=== PATIENT | female | born 1980 | race Caucasian/White ===

== ENCOUNTER 2018-05-22 02:22 | Outpatient (CLI) | payer MEDICAID, SELFPAY ==
[2018-05-22 11:38] LABS: Glucose 105 mg/dL (70-100)
[2018-05-22 11:44] LABS: Hemoglobin A1C 6.1 % (4.5-6.2)
== END 2018-05-22 02:42 ==
PROVIDERS: PCP Family Medicine; Visit Provider Family Medicine
DX: R73.09 Other abnormal glucose (principal); E66.9 Obesity, unspecified
CPT/HCPCS: 36415; 82947; 83036

== ENCOUNTER 2019-03-19 07:32 | Emergency (ER) | payer MEDICAID, SELFPAY ==
[2019-03-19 07:39] VITALS: BP 148/95; PULSE 86; RESP 18; TEMP 36.6; O2SAT 98
--- NOTE | 2019-03-19 07:49 | DI.RAD_ITS ---
EXAM: XR FINGER LT MIDDLE INDICATION: pain s/p closed in car door. COMPARISON: No exams were available for comparison TECHNIQUE: 2D digital imaging was performed. FINDINGS: No fracture or dislocation is seen. IMPRESSION: Negative left middle finger.
--- NOTE | 2019-03-19 07:51 | W.ED.GENAD ---
Discharge Plan Disposition Patient Disposition: HOME Condition: Stable Discharge Details Chief Complaint: Orthopedic Clinical Impression: Subungual hematoma of left middle finger Primary Care Provider: Alice Lawrence ED Provider: Higinio Brownlee Home Meds and New Rx's Prescriptions: Continued xlckcdluenwy-jbai-leojv acid 18-400 mg-mcg tablet 1 tab PO DAILY RF: 0 Calcium Magnesium 500 mg calcium -250 mg tablet 1 tab PO DAILY RF: 0 potassium 99 mg tablet 99 mg PO DAILY RF: 0 One-Per-Day [place]-3 1 EACH capsule,delayed release(DR/EC) 1 ea PO DAILY RF: 0 Mirena 1 EACH intrauterine device 1 ea Intrauterine ONCE Qty: 1 RF: 0 Discharge Instructions Instructions: Hematoma (ED) Additional Instructions: if redness spreads down the finger or you have yellow/white discharge return to the emergency department if still in pain in a week follow up with your primary care provider Medical Decision Making 38 yo female comes in with left middle finger pain. She states it was accidentally closed in a car door around 5pm last night. She performed a self trephination of the nail last night and woke up with conitnued pain and swelling so came here. DEnies pain elsehwere. She has a left middle finger subungal hematoma of the left middle finger involving the entire nail. Does have intact rom and sensation with pain to palpation. Will likely need to be trephinated again and will xray to eval for underlying fx xray neagtive on my read. I cleaned the nail with alcohol swab and using electrocautery trephinated the nail with return of blood and she tolerated well. Will d/c home and return precautions for infection given Differential Diagnosis Differential Diagnosis: fracture, dislocation, subungal hematoma HPI General Mode of arrival: ambulatory. Date/Time Provider Initiated Documentation: 03/19/19 07:46. Limitations to Documentation: no limitations. Information obtained by: patient. History of Present Illness 38 year old F presents to the emergency department with the chief complaint of left middle finger, described as moderate, and it has been constant. No relieving factors improve symptom(s), No exacerbating factors reported . Patient did receive the following treatments prior to arrival, none Related Data Home Medications Medication Instructions Recorded Confirmed One-Per-Day [place]-3 1 ea PO DAILY 12/11/12 03/19/19 Mirena 1 ea INTRAUTERINE ONCE #1 implant 05/26/16 03/19/19 calcium carb-Ca gluc 500 mg 1 tab PO DAILY tab 09/20/18 03/19/19 calcium-magnesium ox-Mg gluc 250 mg tablet multivitamin-ferrous 1 tab PO DAILY 09/20/18 03/19/19 fumarate-folic acid 18 mg-400 mcg tablet potassium 99 mg tablet 99 mg PO DAILY 09/20/18 03/19/19 Allergies Allergy/AdvReac Type Severity Reaction Status Date / Time adhesive tape Allergy Unknown blisters Unverified 03/19/19 07:41 meloxicam AdvReac Intermediate TACHYCARDIA, Unverified 03/19/19 07:47 ELEVATED BP, MIGRAINE ibuprofen AdvReac Unknown HEART RACES Unverified 03/19/19 07:41 General Stated Complaint: Orthopedic MIRELLA: 4 Review of Systems All systems reviewed & are unremarkable except as noted in HPI and below Constitutional Constitutional: Denies chills, Denies fever(s) and Denies weakness Cardiovascular Cardiovascular: Denies chest pain and Denies dyspnea Respiratory Respiratory: Denies cough and Denies dyspnea Gastrointestinal Gastrointestinal: Denies vomiting Musculoskeletal Musculoskeletal: Denies joint swelling Neurologic Neurologic: Denies weakness [facility] Medical History (Updated 01/21/19 @ 14:24 by Elisabet Castillo CNM) Abnormal uterine bleeding 09/2015 After . EMBx secretory endometrium. Will suggest Mirena IUD. Morbid obesity with body mass index of 40.0-44.9 in adult Shingles outbreak 11/18/15 Shingles outbreak 4w PP. encouraged. Surgical History (Updated 07/11/16 @ 17:48 by Usha Guerin) Colonoscopy - IV Sedation (06/24/16) Family History Brother Essential hypertension Personal history of malignant neoplasm Social History (Updated 02/01/18 @ 12:36 by Armaan Mccann) Smoking/Tobacco Use Status: Never Alcohol Intake: never Drug use: Never Substance use type: does not use Household members: spouse and children Frequency: daily Seatbelt use: always Do you feel safe in your relationship?: Yes Female Reproductive History Menstrual Duration of menses: other (using mirena it has improved irregular bleeding since prior to insertion , yet now lasting upwards of 14 days.) control method: progestin IUCD (mirena) Exam Const General: no acute distress Orientation: alert HENMT Head: normal to inspection Ears: external ears normal General nose exam: external nose normal Mouth: moist mucous membranes Eyes General: appearance normal, both eyes and all related structures Neck Neck: normal visual inspection Resp Effort & Inspection: normal respiratory effort and able to speak in complete sentences Cardio Rate: regular rate Skin General skin exam: no rashes or lesions noted Neuro General: alert and oriented x3 Extrem General: normal capillary refill Psych Mental Status: mental status grossly normal Course Vital Signs Vital signs: Vital Signs Temperature 36.6 C 03/19/19 07:39 Pulse 86 03/19/19 07:39 Respiratory Rate 18 03/19/19 07:39 Blood Pressure 148/95 H 03/19/19 07:39 Pulse Oximetry 98 03/19/19 07:39 Temperature 36.6 C 03/19/19 07:39 Pulse 86 03/19/19 07:39 Respiratory Rate 18 03/19/19 07:39 Respiratory Effort 03/19/19 07:43 Blood Pressure 148/95 H 03/19/19 07:39 Blood Pressure Position Sitting 03/19/19 07:39 Pulse Oximetry 98 03/19/19 07:39 Oxygen Delivery Method Room Air 03/19/19 07:39 Oxygen Flow Rate 0 03/19/19 07:39 Pain Level 5 03/19/19 07:43
== END 2019-03-19 08:26 | disposition home or self-care (01) ==
PROVIDERS: Emergency Provider Emergency Medicine; PCP Family Medicine
DX: S67.193A Crushing injury of left middle finger, initial encounter (principal); S60.132A Contusion of left middle finger with damage to nail, initial encounter; W23.0XXA Caught, crushed, jammed, or pinched between moving objects, initial encounter
CPT/HCPCS: 99283; 73140; 99282

== ENCOUNTER 2019-05-03 07:45 | Outpatient (CLI) | payer MEDICAID, SELFPAY ==
[2019-05-03 08:06] LABS: HCT 39.5 % (36.0-46.0); HGB 13.3 g/dL (12.0-15.5); Mean Corp. HGB Concentration 33.7 g/dL (32.0-36.0); Mean Corpuscular Hemoglobin 30.4 pg (27.0-33.0); Mean Corpuscular Volume 90.4 fL (80-95); Mean Platelet Volume 9.5 fL (8.0-11.0); Platelet Count 238 x1000/uL (130-400); RBC 4.37 m/cumm (4.00-5.20); RBC Distribution Width 13.6 % (11.7-14.6); White Blood Cell Count 7.68 k/cumm (4.4-10.8)
[2019-05-03 08:17] LABS: Hemoglobin A1C 5.7 % (3.8-5.6)
[2019-05-03 08:48] LABS: ALT 31 U/L (14-59); AST 22 U/L (15-37); Albumin 3.7 g/dL (3.4-5.0); Alkaline Phosphatase 45 U/L (46-116); Anion Gap 9.3 mmol/L (3-11); BUN 25 mg/dL (7-18); Bilirubin, Total 0.6 mg/dL (0.2-1.0); CO2 29.7 mmol/L (21.0-32.0); CREATININE 0.82 mg/dL (0.55-1.02); Calcium 8.9 mg/dL (8.5-10.1); Chloride 101 mmol/L (98-107); Cholesterol 182 mg/dL (<200); Glucose 84 mg/dL (74-106); HDL Cholesterol 74 mg/dL (40-60); Potassium 4.3 mmol/L (3.5-5.1); Sodium 140 mmol/L (136-145); Triglyceride < 25 mg/dL (<150)
[2019-05-03 08:59] LABS: LDL CHOLESTEROL 96 mg/dL (<100)
== END 2019-05-03 08:05 ==
PROVIDERS: PCP Family Medicine; Visit Provider Family Medicine
DX: R73.03 Prediabetes (principal); N92.0 Excessive and frequent menstruation with regular cycle; E66.9 Obesity, unspecified; Z13.220 Encounter for screening for lipoid disorders
CPT/HCPCS: 36415; 80053; 80061; 83721; 85027; 83036

== ENCOUNTER 2021-02-08 11:05 | Outpatient (REF) | payer MEDICAID, SELFPAY ==
--- NOTE | 2021-02-08 10:20 | PAPFT_PTH ---
PATIENT: Jeniffer Gan LOC: [facility] U#:[id number] AGE/SX: 40/F ROOM: RE02/08/[address]: Shayy Lainez MD : 1980 BED: DIS: 02/08/2021 SPEC #: [id number] RECD: 02/08/21 13:02 STATUS: CARMITA MEREDITH #: [id number] EMMANUEL: 02/08/21 10:[address]: Shayy Lainez DEPT: [facility] Cytology RECD BY: Kim Fletcher ENTERED: 02/08/21 13:03 SP TYPE: PAPFT OTHR DR: Aldo Sánchez Tissues: 1 - CX/ENDOCX FOR PAP SMEARS Procedures: PAP THIN PREP/UVM Screening HPV DNA PROBE Comments: [id number]
== END 2021-02-08 11:06 | disposition home or self-care (01) ==
LOC: LBN 11:05
PROVIDERS: PCP Family Medicine; Visit Provider Obstetrics & Gynecology
DX: Z12.4 Encounter for screening for malignant neoplasm of cervix (principal); Z11.51 Encounter for screening for human papillomavirus (HPV)
CPT/HCPCS: 88142; 87624

== ENCOUNTER 2021-02-10 09:40 | Outpatient (REF) | payer MEDICAID, SELFPAY ==
--- NOTE | 2021-02-10 08:35 | ENDOMET_PTH ---
PATIENT: Jeniffer Gan LOC: [facility] U#:[id number] AGE/SX: 40/F ROOM: RE02/10/[address]: Shayy Lainez MD : 1980 BED: DIS: 02/10/2021 SPEC #: [id number] RECD: 02/10/21 12:48 STATUS: CARMITA REQ #: [id number] EMMANUEL: 02/10/21 08:[address]: Shayy Lainez DEPT: Surgical Specimen RECD BY: Kim Fletcher ENTERED: 02/10/21 12:49 SP TYPE: Endomet OTHR DR: Aldo Sánchez Tissues: 1 - ENDOMETRIUM BX/TONEETTE Procedures: GROSS AND MICRO LEVEL 4 Comments: [id number]
== END 2021-02-10 09:41 | disposition home or self-care (01) ==
LOC: LBN 09:40
PROVIDERS: PCP Family Medicine; Visit Provider Obstetrics & Gynecology
DX: N93.9 Abnormal uterine and vaginal bleeding, unspecified (principal)
CPT/HCPCS: 88305

== ENCOUNTER 2021-02-12 00:27 | Outpatient (CLI) | payer MEDICAID, SELFPAY ==
--- NOTE | 2021-02-12 07:30 | DI.MAMMO_ITS ---
Exam(s) MAMMO SCREENING EXAM: MAMMO SCREENING CLINICAL HISTORY: screening,Z12.39 TECHNIQUE: Mammograms were interpreted according to the usual protocol including computer analysis w [employer] CAD system, tomosynthesis and C-view imaging. COMPARISON: No exams were available for comparison. Baseline examination. FINDINGS: The breasts are composed of scattered fibroglandular densities, Breast Density category B. No suspicious masses or suspicious microcalcifications are seen. No skin thickening or abnormal axillary lymph nodes are seen. There has been no significant change from prior exams. IMPRESSION: BI-RADS Category 1, Negative mammogram Yearly screening mammography is recommended. Breast Density - Category B, scattered fibroglandular densities. A negative radiographic report should not delay biopsy if a dominant or clinically suspicious mass is present. Up to ten percent of cancers are not identified on mammography. A negative report may reinforce clinical impression. Adenosis and dense breasts may obscure an underlying neoplasm. False positive reports average 6 to 10%. Patient will receive a letter notifying them of these results.
== END 2021-02-12 00:47 ==
PROVIDERS: PCP Family Medicine; Visit Provider Family Medicine
DX: Z12.31 Encounter for screening mammogram for malignant neoplasm of breast (principal)
CPT/HCPCS: 77063; 77067

== ENCOUNTER 2021-10-01 06:10 | Day surgery (SDC) | payer MEDICAID, SELFPAY ==
--- NOTE | 2021-09-30 09:52 | W.COLOREPORT ---
Colonoscopy Report Date of procedure: 10/01/21 Pre-op diagnosis general: +family Hx/Adenomatous polyps Post-op diagnosis procedure note: other (normal scope) Surgeon: Cayla Sanchez Anesthesia Type: General:No Airway Estimated blood loss (mL): 0 Pathology: none sent Complications: None Disposition: same day Prep: Miralax/Dulcolax Retraction Time: 9 Procedure Description: After informed consent was obtained the patient was taken to the procedure room and placed in a left decubitous position. Monitors were applied and a time out was done. The patients name, date of , procedure, allergies to medications and metal in their body was reviewed. The patient was then sedated. Once sedated and comfortable a rectal exam was done. External exam was normal. Internal exam revealed a normal sphincter tone and no palpable masses. The scope was then introduced and retrofelexed. No internal hemorrhoids were identified. The scope was then advanced to the cecum difficulty. The TI and appendiceal orifice were identified. The prep was the BPS 2 in all segments for a total of 6 9 The scope was then slowly retracted over 9 minutes back into the rectum. There are no polyps or AVMs visualized today. She has minor diverticula of the sigmoid colon. There is no signs of active bleeding or infection. The scope was removed and the patient was woken up and taken back to Same day surgery in stable condition. The patient tolerated the procedure well and there were no immediate complications. Follow up: The patient should follow up in 5 years unless they develop changes in bowel habits or other new gastrointestinal complaints.
--- NOTE | 2021-09-30 10:01 | W.PM.DSUDISC ---
Discharge Plan Disposition Patient Disposition: HOME Condition: Good Discharge Details Reason For Visit: colon scope Attending Provider: Cayla Sanchez Primary Care Provider: Madeleine Dave Home Meds and New Rx's Prescriptions: Continued jjnynqtwqfvb-uyjk-ipyuy acid 18-400 mg-mcg tablet 1 tab PO DAILY Calcium Magnesium 500 mg calcium -250 mg tablet 1 tab PO DAILY potassium 99 mg tablet 99 mg PO DAILY One-Per-Day [place]-3 1 EACH capsule,delayed release(DR/EC) 1 ea PO DAILY Label Comments: Mirena 1 EACH intrauterine device 1 ea Intrauterine ONCE Qty: 1 Discontinued bisacodyl [Dulcolax (bisacodyl)] 5 mg tablet,delayed release (DR/EC) 5 mg PO ONCE Qty: 4 0RF Rx Instructions: Take according to provider's instructions for colonoscopy prep. polyethylene glycol 3350 17 gram/dose powder 17 g PO ONCE Qty: 238 0RF Rx Instructions: To be taken as directed by prescriber's office for colonoscopy prep. Discharge Instructions Additional Instructions: DSU Colonoscopy Post-Op Instructions Instructions for Everyone who is given Anesthesia: For your safety, please do the following for the next twenty-four (24) hours: *Do Not operate a motor vehicle (car, truck, motorcycle, etc.) *Do Not drink alcoholic beverages or use any recreational drugs for the first 24 hours or while taking pain medications. The medications in your body may have a reaction that can be dangerous. *Do Not make any important decisions or sign any important papers. Findings: Follow up: 1. No lifting over 20 pounds or strenuous activity for the first 24 hours after your procedure. After 24 hours there are no restrictions on your activity but you may feel fatigued for a few days. 2. After you arrive home you may have a light meal and return to your normal diet as you can tolerate it without feeling sick to your stomach. 3. You may have a bloated, gaseous feeling in your belly (abdomen) after a colonoscopy. Passing gas and belching will help. Walking or lying down on your left side with your knees flexed may relieve the discomfort. Call the office at [phone] (Office) or [phone] (Hospital) right away if you notice any of the following: a.Vomiting of blood or ?coffee ground stools?. b.Rectal bleeding 1Tbsp, blood clots or continuous bleeding. c.Severe belly (abdominal) pain. d.A hard distended belly (abdomen) and an inability to pass gas. 4. Please don?t expect to have a normal BM (bowel movement) for 2-3 days after your procedure. 5. If there are questions regarding the findings of your procedure, please contact your doctor 6. If you are unable to contact your doctor with a problem, contact the hospital at [phone]. 7. Continue all your regular medications unless directed otherwise. I understand the above instructions and have no questions. Signature of Patient or Adult Escort Name of Responsible Adult Escort Signature of Nurse Date/Time Activity:: see above Diet:: see above Discharge Orders Discharge Orders: Discharge Order (Routine); Ordered 09/30/21 Ordered By: Cayla Sanchez DS: Diagnosis Discharge Diagnosis (1) Diverticula of colon: Status: Acute
[2021-10-01 06:15] VITALS: BP 140/96; PULSE 82; RESP 18; TEMP 36.6; O2SAT 99
[2021-10-01] MEDS: Lactated Ringers 1,000 ML 80 ML IV (06:37)
--- NOTE | 2021-10-01 07:13 | ANES.PREOP_ITS ---
General Info Date of Service Date Performed: 10/29/21 Height: 5 ft 11 in Weight: 130 kg Body Mass Index (BMI): 39.9 Surgical Procedure: Operation Date: 10/01/21 07:35 Proposed Procedure Side Surgeon p Colonoscopy Cayla Sanchez, DO Actual Procedure Side Surgeon p Colonoscopy Cayla Sanchez, DO Meds Allergies and Home Medications Allergies Allergy/AdvReac Type Severity Reaction Status Date / Time adhesive tape Allergy Unknown blisters Verified 10/01/21 06:22 codeine AdvReac Intermediate Sleepiness, Verified 10/01/21 06:22 reduced cognition meloxicam AdvReac Intermediate TACHYCARDIA, Verified 10/01/21 06:22 ELEVATED BP, MIGRAINE caffeine AdvReac Mild Tachycardia Verified 10/01/21 06:22 ibuprofen AdvReac Unknown HEART RACES Verified 10/01/21 06:22 Home Medication Medication Instructions Recorded omega-3 fatty acids-fish oil 684 1 ea PO DAILY 12/11/12 mg-1,200 mg capsule,delayed release (One-Per-Day [place]-3) levonorgestrel 20 mcg/24 hours (7 1 ea intrauterine ONCE #1 implant 05/26/16 yrs) 52 mg intrauterine device (Mirena) calcium carb-Ca gluc 500 mg 1 tab PO DAILY 09/20/18 calcium-magnesium ox-Mg gluc 250 mg tablet (Calcium Magnesium) multivitamin-ferrous 1 tab PO DAILY 09/20/18 fumarate-folic acid 18 mg-400 mcg tablet potassium 99 mg tablet 99 mg PO DAILY 09/20/18 Current Visit Medications: Current Medications Generic Name Dose Route Start Last Admin Trade Name Freq PRN Reason Stop Dose Admin Hyoscyamine Sulfate 0.125 mg 09/30/21 09:52 Hyoscyamine 0.125 Mg Sl/Oral/Chew SL DIRECTED PRN Ringer's Solution 1,000 mls @ 80 mls/hr 10/01/21 06:00 10/01/21 06:37 IV 10/28/21 23:59 80 mls/hr INFUSION JORDON Administration IV Miscellaneous Supplies 1 each 10/01/21 06:00 Iv Access IV 10/28/21 23:59 DIRECTED JORDON Ondansetron HCl 4 mg 09/30/21 09:52 Ondansetron 4 Mg/2 Ml Vial IVP Q4H PRN PRN Nausea / Vomiting Sodium Chloride 0 ml 10/01/21 06:00 Normal Saline Flush 10 Ml Syr IV 10/28/21 23:59 PRN PRN Sodium Chloride 0 ml 10/01/21 06:00 Normal Saline 10 Ml Vial IJ 10/28/21 23:59 DIRECTED PRN Sterile Water 0 ml 10/01/21 06:00 Water,Injection,Sterile 10 Ml Vial IJ 10/28/21 23:59 DIRECTED PRN PFSH Active Problems Active Problems: Problem Status Onset Code Arthritis of right knee 05/22/17 M17.11 Obesity (BMI 30-39.9) 05/31/17 E66.9 Tinnitus 11/20/14 H93.19 Tubular adenoma 06/24/16 D36.9 Family history of familial polyposis Z83.71 ANDREY (stress urinary incontinence, female) N39.3 Medical History Medical History Abnormal uterine bleeding (05/18/16) Nl CBC and TSH. EMBx 05/18/16 Secretory endometrium. Infected finger joint Laceration of left index finger Shingles outbreak 11/18/15 Shingles outbreak 4w PP. encouraged. Medical History Comments:: Pt. states when she goes deeply under anesthesia she wakes up with severe violent vomiting. States last colonoscopy they kept her semi-awake and she was okay. Surgical History Surgical History Colonoscopy - IV Sedation (06/24/16) H/O ovarian cystectomy Laparoscopic - Dermoid History of ankle surgery 2 pins in ankle Status post ovarian cystectomy Tobacco Smoking/Tobacco Use Status: Never Passive smoking exposure: No Second hand exposure: Yes Alcohol Alcohol Intake: never Substance Use Substance use: Never Substance use type: does not use Prental History History 9 Para 6 Hx # Term Pregnancies 6 Multiple births Hx # Pregnancies Ectopic pregnancies AB induced Hx Number of Living Children 6 AB spontaneous 3 Past Pregnancies Del. Date GA/Weeks # Outcome Route Wgt Sex Labor Lgth Anesthes ia Location Prov Complic 01/11/03 40 vaginal 3713.788 g Male [facility] , [facility] 12/17/04 40 vaginal 4139.03 g Male [facility], [facility] 11/28/07 40 vaginal 3685.438 g Female [facility] 06/09/10 42 vaginal 4394.176 g Male [facility] 05/19/12 40 vaginal 4394.176 g Female [facility] 10/21/15 38 vaginal 3742.137 g Female [facility] Vital Signs and Lab Results Vital Signs Most Recent Vital Signs in EMR: Most Recent Vital Signs Temp Pulse Resp BP Pulse Ox 36.6 C 82 18 140/96 H 99 10/01/21 06:15 10/01/21 06:15 10/01/21 06:15 10/01/21 06:15 10/01/21 06:15 Point of Care Results Point of Care Results: POC- Test(urine) Negative 10/01/21 06:29 Lab Results Blood Type / Crossmatch: No Data to Display Complete Blood Count: No Data to Display Complete Metabolic Panel: No Data to Display Liver Function Panel: No Data to Display Coagulation Panel: No Data to Display Cardiac Panel: No Data to Display Arterial Blood Gas: No Data to Display Venous Blood Gas: No Data to Display Pancreas Panel: No Data to Display Thyroid Panel: No Data to Display Infectious Disease: No Data to Display Blood Cultures: No Data to Display Toxicology Panel: No Data to Display Panel: No Data to Display Anesthesia Assessment and Plan Anesthesia History Personal History: PONV Family History: No Family History of Anesthesia Complications Exercise Tolerance Exercise Tolerance: Metabolic Equivalents>4 Pertinent Negatives Pertinent Negatives: No Symptoms of GERD Cardiac & Pulmonary Exam Cardiac Exam: Normal S1/S2 Heart Sounds Pulmonary Exam: Clear Bilateral Breath Sounds Implantable Cardiac Device Does patient have a Pacemaker or an ICD?: No Airway Exam Known Difficult Airway: No Mallampati Class: 1 Mouth Opening: Normal (> 3cm) Thyromental Distance: Greater than 3 cm Neck Range of Motion: Full ROM Neck Circumference: Normal Teeth Condition: Normal Dentition ASA Classification ASA Score: ASA 2 Emergency Case?: No NPO Status NPO Status: NPO Clears >2 hours, Solids >8 hours Status Status: Negative HCG Anesthesia Plan Resuscitation Status: Full Code Anesthesia Technique: General Anesthesia Airway Planned: Natural Airway Monitors Used: Standard Monitors
[2021-10-01 07:26] VITALS: BMI 39.9
[2021-10-01 08:10] VITALS: BP 127/81; PULSE 77; RESP 18; TEMP 36.4; O2SAT 99
--- NOTE | 2021-10-01 08:23 | W.ANESPOSTOP ---
Postoperative Evaluation Date, Time and Location Date Performed: 10/01/21 Time Performed: 07:24 Patient Location: Day Surgery Unit Vital Signs Most Recent Imported Vital Signs: Most Recent Vital Signs Temp Pulse Resp BP Pulse Ox 36.4 C L 77 18 127/81 99 10/01/21 08:10 10/01/21 08:10 10/01/21 08:10 10/01/21 08:10 10/01/21 08:10 Pain Score Most Recent Pain Score: Most Recent Pain Score Pain Level 0 10/01/21 08:10 Assessment Mental Status: Awake (Alert & Oriented to Patient Baseline) Airway and Respiratory Function: Patent airway with normal (patient baseline) respiratory exam Cardiovascular Function: Hemodynamically Stable Hydration Status: Adequately Hydrated Nausea & Vomiting: No Nausea or Vomiting Pain: Pt. Denies Any Pain Peripheral Nerve Block: Patient did not receive a nerve block
[2021-10-01 08:35] VITALS: BP 142/97; PULSE 66; RESP 18; TEMP 36.3; O2SAT 100
== END 2021-10-01 08:55 | disposition home or self-care (01) ==
PROVIDERS: Visit Provider Surgery
PROC: 0DJD8ZZ Inspection of Lower Intestinal Tract, Via Natural or Artificial Opening Endoscopic (ICD-10-PCS; CPT 45378; principal; 2021-10-01 07:30)
DX: Z12.11 Encounter for screening for malignant neoplasm of colon (principal); Z80.0 Family history of malignant neoplasm of digestive organs; Z86.010 Personal history of colon polyps
CPT/HCPCS: 45378; 81025

== ENCOUNTER 2022-03-08 03:19 | Outpatient (CLI) | payer MEDICAID, SELFPAY ==
[2022-03-08 07:29] LABS: HCT 42.4 % (36.0-46.0); HGB 13.7 g/dL (11.2-15.7); MCH 28.7 pg (27.0-33.0); MCHC 32.3 % (32.0-36.0); MCV 89 fL (80-95); MPV 9.5 fL (8.0-11.0); Platelet Count 254 10^3/uL (130-400); RBC 4.77 10^6/uL (3.93-5.22); RDW 12.6 % (11.7-14.6); RDW-SD 41.3 fL
[2022-03-08 08:17] LABS: ALT 15 U/L (14-59); AST 13 U/L (15-37); Albumin 3.6 g/dL (3.4-5.0); Alkaline Phosphatase 67 U/L (46-116); BUN 22 mg/dL (7-18); Bilirubin, Total 0.5 mg/dL (0.2-1.0); CREATININE 0.7 mg/dL (0.55-1.02); Calcium 9.1 mg/dL (8.5-10.1); Calculated LDL 94 mg/dL (<100); Chloride 101 mmol/L (98-107); Cholesterol 171 mg/dL (<200); Estimated GFR 110.67 (mL/min/1.73m2); Glucose 101 mg/dL (74-106); HDL Cholesterol 71 mg/dL (40-60); Potassium 4.1 mmol/L (3.5-5.1); Sodium 138 mmol/L (136-145); TSH (W/Ref FT4) 1.12 uIU/mL (0.36-3.74); Total Protein 7.8 g/dL (6.4-8.2); Triglyceride 32 mg/dL (<150)
== END 2022-03-08 03:20 | disposition home or self-care (01) ==
LOC: LBO 03:20
PROVIDERS: PCP Nurse Practitioner Family; Visit Provider Nurse Practitioner Family
DX: E66.01 Morbid (severe) obesity due to excess calories (principal); N93.8 Other specified abnormal uterine and vaginal bleeding
CPT/HCPCS: 36415; 80053; 80061; 85027; 84443

== ENCOUNTER → 2022-03-23 01:25 | Outpatient (CLI) | payer MEDICAID, SELFPAY ==
--- NOTE | 2022-03-23 07:47 | DI.MAMMO_ITS ---
Exam(s) MAMMO SCREENING EXAM: MAMMO SCREENING CLINICAL HISTORY: screening,Z12.39 TECHNIQUE: Bilateral full field digital CC and MLO mammographic images were obtained with 3D tomosyn thesis and utilizing computer aided detection (CAD). COMPARISON: Available for comparison. FINDINGS: Masses/Architectural Distortion: None seen. Microcalcifications: No suspicious pleomorphic-type are seen. Skin Thickening/Nipple Retraction: None. IMPRESSION: 1. No significant interval change with no specific features of malignancy noted. 2. Unless there is more urgent need, screening mammography is recommended, as per [place] [employer] guidelines. BI-RADS Category 1 - Negative Breast Density - Category B - Scattered areas of fibroglandular density Breast density category C or D implies that the patient has dense breast tissue. Dense breast tissue is very common and is not abnormal but dense breast tissue can make it harder to find cancer on a ma mmogram. Also, dense breast tissue may increase their breast cancer risk. This information about the result of the mammogram report was provided to the patient to raise their awareness. Use this report when you speak with the patient about their risks for breast cancer, which includes their family hist ory. At that time, you may recommend for more screening tests (Ultrasound or MRI) as they might be us eful based on their risk. A negative radiographic report should not delay biopsy if a dominant or clinically suspicious mass is present. Up to ten percent of cancers are not identified on mammography. A negative report may reinforce clinical impression. Adenosis and dense breasts may obscure an underlying neoplasm. False positive reports average 6 to 10%. Patient will receive a letter notifying them of these results.
== END ==
PROVIDERS: PCP Nurse Practitioner Family; Visit Provider Nurse Practitioner Family
DX: Z12.31 Encounter for screening mammogram for malignant neoplasm of breast (principal)
CPT/HCPCS: 77063; 77067

== ENCOUNTER → 2022-03-28 01:44 | Outpatient (CLI) | payer MEDICAID, SELFPAY ==
--- NOTE | 2022-03-28 07:00 | DI.US_ITS ---
Exam(s) US PELVIS TRANSVAGINAL EXAM: US PELVIS TRANSVAGINAL CLINICAL HISTORY: abnl irregular bleeding,n93.9 TECHNIQUE: Transabdominal and transvaginal imaging was performed using standard protocol. COMPARISON: No exams were available for comparison FINDINGS: KIDNEYS: Kidneys are symmetric in size. No evidence of renal calculi. No evidence of hydronephrosis. No renal mass or cyst identified. UTERUS: Retroverted. 8.7 x 5.3 x 6.5 cm Endometrium: 5 mm. IUD noted appropriately positioned within the endometrial cavity. Myometrium: Unremarkable. Cervix: Unremarkable. OVARIES: Right: Cyst or mass: None. Left: Cyst or mass: None. DOPPLER: Color: Symmetric and uniform flow to both ovaries. No hyperemia. CUL-DE-SAC: Free fluid: None. IMPRESSION: 1. Normal-appearing uterus with endometrial stripe within normal limits. IUD in place. 2. Unremarkable bilateral ovaries. DATA REPOSITORY:
== END ==
PROVIDERS: PCP Nurse Practitioner Family; Visit Provider Obstetrics & Gynecology
DX: N93.8 Other specified abnormal uterine and vaginal bleeding (principal); Z97.5 Presence of (intrauterine) contraceptive device
CPT/HCPCS: 76830; 76856

== ENCOUNTER → 2023-03-29 01:35 | Outpatient (CLI) | payer MEDICAID, SELFPAY ==
--- NOTE | 2023-03-29 07:45 | DI.MAMMO_ITS ---
Exam(s) MAMMO SCREENING EXAM: MAMMO SCREENING CLINICAL HISTORY: screening,z12.39 TECHNIQUE: Bilateral full field digital CC and MLO mammographic images were obtained with 3D tomosyn thesis and utilizing computer aided detection (CAD). COMPARISON: Available for comparison. FINDINGS: Masses/Architectural Distortion: There is an area of breast asymmetry more prominent in the outer rig ht breast on the craniocaudad view 12 cm from the nipple. Microcalcifications: No suspicious pleomorphic-type are seen. Skin Thickening/Nipple Retraction: None. IMPRESSION: 1. New prominent area of breast asymmetry in the outer right breast on the craniocaudad view. 2. This area should be further evaluated with a spot compression view. Limited right breast ultrasou nd may be indicated at that time. BI-RADS Category 0 - Assessment Incomplete: Need additional imaging evaluation Breast Density - Category B - Scattered areas of fibroglandular density Breast density category C or D implies that the patient has dense breast tissue. Dense breast tissue is very common and is not abnormal but dense breast tissue can make it harder to find cancer on a ma mmogram. Also, dense breast tissue may increase their breast cancer risk. This information about the result of the mammogram report was provided to the patient to raise their awareness. Use this report when you speak with the patient about their risks for breast cancer, which includes their family hist ory. At that time, you may recommend for more screening tests (Ultrasound or MRI) as they might be us eful based on their risk. A negative radiographic report should not delay biopsy if a dominant or clinically suspicious mass is present. Up to ten percent of cancers are not identified on mammography. A negative report may reinforce clinical impression. Adenosis and dense breasts may obscure an underlying neoplasm. False positive reports average 6 to 10%. Patient will receive a letter notifying them of these results.
== END ==
PROVIDERS: PCP Nurse Practitioner Family; Visit Provider Nurse Practitioner Family
DX: Z12.31 Encounter for screening mammogram for malignant neoplasm of breast (principal)
CPT/HCPCS: 77063; 77067

== ENCOUNTER → 2023-04-07 00:33 | Outpatient (CLI) | payer MEDICAID, SELFPAY ==
--- NOTE | 2023-04-07 | DI.US_ITS ---
Exam(s) MG MAMMO SCREEN CALL BACK UNI US BREAST RT COMPLETE EXAM: MG MAMMO SCREEN CALL BACK UNI-RIGHT AND COMPLETE RIGHT BREAST ULTRASOUND CLINICAL HISTORY: F/U ABNL MAMMO, NEW PROMINENT AREA BREAST ASYMMETRY OUTER RT BREAST. TECHNIQUE: Unilateral spot RIGHT BREAST mammographic images obtained with 3D tomosynthesisand utiliz ing computer aided detection (CAD). . Complete RIGHT BREAST ultrasound was performed including all 4 quadrants, the retroareolar region, an d the ipsilateral axilla. COMPARISON: Prior mammograms were reviewed. This additional imaging was performed due to findings described on the recent screening mammogram of 11/26/2022. FINDINGS: DIAGNOSTIC MAMMOGRAM: Additional mammographic views performed todayreveals small benign-appearing lymph node laterally in t he breast. The asymmetric density for which is patient was recalled for as equivocal appearance on a dditional spot compression 3D mammographic view. We proceeded with ultrasound... COMPLETE RIGHT BREAST ULTRASOUND: Ultrasound performed today reveals a benign-appearing 6 millimeter lymph node at the 7 o'clock positi on located 5 cm from the nipple, this corresponding to benign lymph nodes seen in the breast on the m ammogram. There are no other significant focal findings in all 4 quadrants of the right breast. No finding to correspond to the finding described on the recent screening mammogram. Scanning of the ipsilateral axilla reveals no significant adenopathy. IMPRESSION: 1. Benign findings in the right breast as described above. Appropriate follow-up as discussed by myself with the patient today is repeat right breast mammogram in 6 months, with earlier imaging if a self detected breast change is noted.. The patient was informed of these findings and recommendations by myself prior to leaving the departm ent today. BI-RADS Category 3 - 6 month - Probably Benign Finding: Recommend follow-up mammography in 6 months Breast Density - Category B - Scattered areas of fibroglandular density Breast density Category C or D implies that the patient has dense breast tissue. Dense breast tissue can make it harder to find cancer on a mammogram. Dense breast tissue is also associated with an incr eased risk of breast cancer. This information about the result of the mammogram report was provided to the patient to raise their awareness. Use this report when you speak with the patient about their risks for breast cancer, which includes their family history. At that time, you may recommend additional screening tests (Ultrasoun d or MRI) as these tests may add significant information. A negative radiographic report should not delay biopsy if a dominant or clinically suspicious mass is present. Up to ten percent of cancers are not identified on mammography. A negative report may reinforce clinical impression. Adenosis and dense breasts may obscure an underlying neoplasm. False positive reports average 6 to 10%. Patient will receive a letter notifying them of these results.
== END ==
PROVIDERS: PCP Nurse Practitioner Family; Visit Provider Nurse Practitioner Family
DX: Z12.31 Encounter for screening mammogram for malignant neoplasm of breast (principal); D36.0 Benign neoplasm of lymph nodes; R92.8 Other abnormal and inconclusive findings on diagnostic imaging of breast
CPT/HCPCS: 76642; 77063; 77067

== ENCOUNTER → 2023-10-11 00:34 | Outpatient (CLI) | payer MEDICAID, SELFPAY ==
--- NOTE | 2023-10-11 07:45 | DI.US_ITS ---
Exam(s) MG MAMMO DIAGNOSTIC UNI US BREAST RT COMPLETE EXAM: MG MAMMO DIAGNOSTIC UNI-RIGHT AND COMPLETE RIGHT BREAST ULTRASOUND CLINICAL HISTORY: 6 month follow up, ABNL RT MAMMO RT BREAST, Z09, R92.8. TECHNIQUE: Unilateral RIGHT BREAST CC AND MLOmammographic images were obtained with 3D tomosynthesis technique and utilizing computer aided detection (CAD). COMPLETE RIGHT BREAST ULTRASOUND was performed including all 4 quadrants as well as the right axilla. COMPARISON: Prior mammograms were reviewed,. Prior ultrasound March 2023 also reviewed. FINDINGS: DIAGNOSTIC RIGHT BREAST MAMMOGRAM: The oval nodular density in the upper outer quadrant appears unchanged. We proceeded with ultrasound... COMPLETE RIGHT BREAST ULTRASOUND: At the 7 o'clock position there is a benign 6 millimeter lymph node again noted. At the 11 o'clock p osition there is a 5 x 3 mm oval cyst. This corresponds to the finding on the mammogram. Most importantly, there are no solid lesions in all 4 quadrants of the right breast Scanning of the right axilla is negative for significant adenopathy. IMPRESSION: There is a 5 x 3 mm benign cyst which corresponds to the nodule in the upper-outer quadrant of the ri ght breast on the mammogram. No solid lesions Appropriate follow-up is to keep this patient on her yearly mammogram schedule, this implying the nex t bilateral mammogram would be in March 2024, with earlier imaging if a self detected breast watts e is noted.. The patient was informed of the findings and follow-up recommendations by myself prior to leaving the department today. BI-RADS Category 2 - Benign Findings Breast Density - Category B - Scattered areas of fibroglandular density Breast density Category C or D implies that the patient has dense breast tissue. Dense breast tissue can make it harder to find cancer on a mammogram. Dense breast tissue is also associated with an incr eased risk of breast cancer. This information about the result of the mammogram report was provided to the patient to raise their awareness. Use this report when you speak with the patient about their risks for breast cancer, which includes their family history. At that time, you may recommend additional screening tests (Ultrasoun d or MRI) as these tests may add significant information. A negative radiographic report should not delay biopsy if a dominant or clinically suspicious mass is present. Up to ten percent of cancers are not identified on mammography. A negative report may reinforce clinical impression. Adenosis and dense breasts may obscure an underlying neoplasm. False positive reports average 6 to 10%. Patient will receive a letter notifying them of these results.
== END ==
PROVIDERS: PCP Nurse Practitioner Family; Visit Provider Nurse Practitioner Family
DX: Z09 Encounter for follow-up examination after completed treatment for conditions other than malignant neoplasm (principal); R92.8 Other abnormal and inconclusive findings on diagnostic imaging of breast
CPT/HCPCS: 76642; 77061; 77065; G0279

== ENCOUNTER 2024-01-04 03:25 | Outpatient (CLI) | payer MEDICAID, SELFPAY ==
[2024-01-04 08:00] LABS: Abs Immature Grans 0.03 10^3/uL (0.0-0.06); Absolute Basophil Count 0.05 10^3/uL (0.0-0.2); Absolute Eosinophil Count 0.27 10^3/uL (0.0-0.7); Absolute Lymphocyte Count 2.31 10^3/uL (1.2-3.4); Absolute Monocyte Count 0.65 10^3/uL (0.1-0.8); Absolute Neutrophil Count 4.65 10^3/uL (1.2-6.7); Basophils % 0.6 %; Eosinophils % 3.4 %; HCT 43.7 % (36.0-46.0); HGB 14.2 g/dL (11.2-15.7); Immature Grans % 0.4 %; MCHC 32.5 % (32.0-36.0); MCV 89 fL (80-95); MPV 9.5 fL (8.0-11.0); Monocytes % 8.2 %; Neutrophils % 58.4 %; Platelet Count 288 10^3/uL (130-400); RDW 12.8 % (11.7-14.6); RDW-SD 42.1 fL; WBC 7.96 10^3/uL (4.4-10.8)
[2024-01-04 09:21] LABS: ALT 24 U/L (14-59); AST 17 U/L (15-37); Albumin 3.8 g/dL (3.4-5.0); Alkaline Phosphatase 78 U/L (46-116); Anion Gap 8.4 mmol/L (3-11); BUN 25 mg/dL (7-18); Bilirubin, Total 0.53 mg/dL (0.2-1.0); CO2 28.6 mmol/L (21.0-32.0); CREATININE 0.8 mg/dL (0.55-1.02); Calcium 9.4 mg/dL (8.5-10.1); Calculated LDL 105 mg/dL (<100); Chloride 100 mmol/L (98-107); Cholesterol 189 mg/dL (<200); Estimated GFR 93.12 (mL/min/1.73m2); Glucose 114 mg/dL (74-106); HDL Cholesterol 74 mg/dL (40-60); Sodium 137 mmol/L (136-145); Triglyceride 50 mg/dL (<150); Vitamin B12 848 pg/mL (193-986)
[2024-01-04 09:37] LABS: Uric Acid 4.3 mg/dL (2.6-6.0)
[2024-01-04 09:38] LABS: C-Reactive Protein < 0.50 mg/dL (<or=0.5)
[2024-01-05 09:50] LABS: Insulin 7.5 uIU/mL (<29.0)
== END 2024-01-04 03:26 | disposition home or self-care (01) ==
PROVIDERS: PCP Nurse Practitioner Family; Visit Provider Family Medicine
DX: E66.01 Morbid (severe) obesity due to excess calories (principal); Z68.42 Body mass index [BMI] 45.0-49.9, adult
CPT/HCPCS: 36415; 80053; 80061; 82607; 83525; 84550; 85025; 86140

== ENCOUNTER 2024-05-07 01:15 | Outpatient (CLI) | payer MEDICAID, SELFPAY ==
--- NOTE | 2024-05-07 12:49 | DI.MAMMO_ITS ---
Exam(s) MAMMO SCREENING EXAM: MAMMO SCREENING CLINICAL HISTORY: screening,Z12.39 TECHNIQUE: Bilateral full field digital CC and MLO mammographic images were obtained with 3D tomosyn thesis and utilizing computer aided detection (CAD). COMPARISON: Available for comparison. FINDINGS: Masses/Architectural Distortion: There is a stable intraparenchymal lymph nodes seen in the outer rig ht breast. No suspicious nodules are seen. No areas of architectural distortion are present. Microcalcifications: No suspicious pleomorphic-type are seen. Skin Thickening/Nipple Retraction: None. IMPRESSION: 1. No significant interval change with no specific features of malignancy noted. 2. Unless there is more urgent need, screening mammography is recommended, as per [employer] guidelines. BI-RADS Category 2 - Benign Findings Breast Density - Category B - Scattered areas of fibroglandular density Breast density category C or D implies that the patient has dense breast tissue. Dense breast tissue is very common and is not abnormal but dense breast tissue can make it harder to find cancer on a ma mmogram. Also, dense breast tissue may increase their breast cancer risk. This information about the result of the mammogram report was provided to the patient to raise their awareness. Use this report when you speak with the patient about their risks for breast cancer, which includes their family hist ory. At that time, you may recommend for more screening tests (Ultrasound or MRI) as they might be us eful based on their risk. A negative radiographic report should not delay biopsy if a dominant or clinically suspicious mass is present. Up to ten percent of cancers are not identified on mammography. A negative report may reinforce clinical impression. Adenosis and dense breasts may obscure an underlying neoplasm. False positive reports average 6 to 10%. Patient will receive a letter notifying them of these results.
== END 2024-05-07 01:35 ==
LOC: DI 01:15
PROVIDERS: PCP Nurse Practitioner Family; Visit Provider Nurse Practitioner Family
DX: Z12.31 Encounter for screening mammogram for malignant neoplasm of breast (principal); R92.323 Mammographic fibroglandular density, bilateral breasts; D24.1 Benign neoplasm of right breast
CPT/HCPCS: 77063; 77067

== ENCOUNTER 2024-05-18 11:31 | Outpatient (REF) | payer MEDICAID, SELFPAY ==
[2024-05-18 15:27] LABS: HCT 42.2 % (36.0-46.0); HGB 13.5 g/dL (11.2-15.7); MCH 28.6 pg (27.0-33.0); MCV 89 fL (80-95); MPV 9.7 fL (8.0-11.0); Platelet Count 276 10^3/uL (130-400); RBC 4.72 10^6/uL (3.93-5.22); RDW-SD 43.1 fL; WBC 7.86 10^3/uL (4.4-10.8)
[2024-05-18 15:30] LABS: ESR 37 mm/hr (0-20)
[2024-05-18 15:33] LABS: ALT 19 U/L (14-59); AST 15 U/L (15-37); Albumin 3.8 g/dL (3.4-5.0); Alkaline Phosphatase 76 U/L (46-116); Anion Gap 6.9 mmol/L (3-11); BUN 13 mg/dL (7-18); Bilirubin, Total 0.27 mg/dL (0.2-1.0); C-Reactive Protein 0.81 mg/dL (<or=0.5); CO2 30.1 mmol/L (21.0-32.0); CREATININE 0.8 mg/dL (0.55-1.02); Chloride 104 mmol/L (98-107); Estimated GFR 92.54 (mL/min/1.73m2); Glucose 112 mg/dL (74-106); Potassium 4.5 mmol/L (3.5-5.1); Sodium 141 mmol/L (136-145); Total Protein 7.4 g/dL (6.4-8.2)
[2024-05-20 14:33] LABS: IgA 249 mg/dL (85-499); Interpretation (See Note); Tissue Transglutaminase IgA <4.0 CU (<20.0)
== END 2024-05-18 11:32 | disposition home or self-care (01) ==
LOC: LBN 11:31
PROVIDERS: PCP Nurse Practitioner Family; Visit Provider Nurse Practitioner Family
DX: R73.9 Hyperglycemia, unspecified
CPT/HCPCS: 80053; 82784; 83516; 85027; 85652; 83036; 86140